=== PATIENT | female | born 1970 | race Caucasian/White ===

== ENCOUNTER → 2017-03-23 | Outpatient (CLI) | payer OTHER ==
[~2017-03-23] MED LIST: ARMO150T5 PO; BUPR-136 PO; MELA3TAB31 PO; TRAZ-156 PO; VALA500T63 PO; [UNRECOGNIZED DRUG - CODE] PO
[2017-03-23 12:12] LABS: PLATELET COUNT, AUTOMATED 258 K/uL (150-450)
== END ==
LOC: LAB 11:57
PROVIDERS: ATTEND Nurse Practitioner Family
DX: D86.9 Sarcoidosis, unspecified (principal)
CPT/HCPCS: 36415; 82040; 82247; 82310; 82374; 82435; 82565; 82947; 84075; 84132; 84155; 84295; 84450; 84460; 84520; 85025

== ENCOUNTER → 2018-04-30 | Outpatient (CLI) | payer OTHER ==
[~2018-04-30] MED LIST changes: -TRAZ-156 PO; +TRAZ50TA34 PO
[2018-04-30 08:21] LABS: PLATELET COUNT, AUTOMATED 236 K/uL (150-450)
[2018-04-30 09:11] LABS: LDL CHOLESTEROL 78 mg/dl
== END ==
LOC: LAB 08:03
PROVIDERS: ATTEND Nurse Practitioner Family
DX: E04.1 Nontoxic single thyroid nodule (principal); Z79.899 Other long term (current) drug therapy
CPT/HCPCS: 36415; 82040; 82247; 82310; 82374; 82435; 82465; 82565; 82947; 83718; 84075; 84132; 84155; 84295; 84443; 84450; 84460; 84478; 84520; 85025